=== PATIENT | male | born 1995 | race Caucasian/White ===

== ENCOUNTER 2019-02-17 13:50 | Emergency (ER) | payer BC, OTHER, MEDICAID ==
[2019-02-17] MEDS: IBUPROFEN 800 MG TAB PO (14:21)
== END 2019-02-17 15:29 | disposition home or self-care (01) ==
LOC: FTE 15:29
DX: S43.101A Unspecified dislocation of right acromioclavicular joint, initial encounter (principal); X58.XXXA Exposure to other specified factors, initial encounter; Y92.9 Unspecified place or not applicable
CPT/HCPCS: 73030; 73030-RT; 99283-25